=== PATIENT | male | born 1960 | race Caucasian/White ===

== ENCOUNTER 2016-08-11 23:00 | Emergency (ER) | payer MEDICARE, OTHER ==
[2016-08-11 22:45] LABS: BASOPHILS 0.3 %; BASOPHILS ABSOLUTE 0.03 10/3/uL (0.0-0.16); EOSINOPHILS ABSOLUTE 0.29 10/3/uL (0.0-0.53); ER CBC TAT 0 Hrs 13 Mins; HEMATOCRIT 40.7 % (40.0-51.0); HEMOGLOBIN 13.9 g/dL (13.6-17.8); IMMATURE GRANULOCYTES 0.2 %; IMMATURE GRANULOCYTES ABSOLUTE 0.02 10/3/uL (0.0-0.11); LYMPHOCYTES 29.1 %; LYMPHOCYTES ABSOLUTE 2.79 10/3/uL (0.67-4.30); MEAN CORPUS HGB CONC 34.2 g/dL (32.0-36.0); MEAN CORPUSCULAR HEMOGLOB 31.3 pg (26.0-34.0); MEAN CORPUSCULAR VOLUME 91.7 fL (80-100); MEAN PLATELET VOLUME 8.2 fL (9.2-13.0); MONOCYTES 9.7 %; MONOCYTES ABSOLUTE 0.93 10/3/uL (0.21-1.20); NEUTROPHILS 57.7 %; NEUTROPHILS ABSOLUTE 5.52 10/3/uL (2.02-8.40); PLATELET COUNT 152 10/3/uL (150-400); RED CELL COUNT 4.44 10/6/uL (4.7-6.1); WHITE BLOOD CELLS 9.6 10/3/uL (4.5-10.5)
[2016-08-11 22:47] LABS: MANUAL DIFF NO %
[~2016-08-11 23:00] MED LIST: AMITIZA8 MCG PO; CIP2 PO; CLOZARIL25 M1 PO; ESKACR PO; ESKALITH PO; FISH-EPA1000 MG PO; FLEX PO; FORTAMET500 MG PO; GLUCPH PO; LAMICTAL200 MG PO; METFORMIN PO; MORPHINE PO; MSCONT15 PO; MSIMMR15 PO; NEUR800 PO; NEXIUM40 PO; PROSCAR5 PO; SOMATAB PO; TRAVATAN OPH; V5 PO; VITAMIN D1000 UNI1 PO; XALAT OPH; ZANTAC 75 PO; ZANTAC300 MG PO; ZOCOR40 PO; [UNRECOGNIZED DRUG - OTHER] PO
[2016-08-11 23:04] LABS: A/G RATIO 1.1 (0.7-1.9); ALBUMIN 3.6 G/DL (3.5-5.0); BUN (BLOOD UREA NITROGEN) 9 MG/DL (6-23); CHLORIDE, SERUM 102 MMOL/L (96-112); CO2 (CARBON DIOXIDE) 31 MMOL/L (24-34); CREATININE 0.72 MG/DL (0.70-1.30); GFR AFRICAN AMERICAN 121 ML/MIN (>=60); GFR NON AFRICAN AMERICAN 104 ML/MIN (>=60); GLOBULIN 3.4 G/DL (2.5-4.1); GLUCOSE, SERUM 98 MG/DL (60-99); SGOT(AST) 7 U/L (5-40); SGPT(ALT) 15 U/L (5-65); SODIUM, SERUM 140 MMOL/L (135-148); TOTAL BILIRUBIN 0.8 MG/DL (0-1.2)
[2016-08-11 23:10] LABS: ALKALINE PHOSPHATASE 76 U/L (45-117); POTASSIUM, SERUM 3.6 MMOL/L (3.5-5.3)
== END 2016-08-12 02:53 | disposition home or self-care (01) ==
LOC: ER 23:00
PROVIDERS: Emergency Medicine
DX: R10.31 Right lower quadrant pain (principal); R10.32 Left lower quadrant pain; E11.9 Type 2 diabetes mellitus without complications; Z88.8 Allergy status to other drugs, medicaments and biological substances; Z79.899 Other long term (current) drug therapy; Z79.84 Long term (current) use of oral hypoglycemic drugs
CPT/HCPCS: 80053; 81001; 83690; 85025; 99284

== ENCOUNTER 2016-08-20 22:30 | Emergency (ER) | payer MEDICARE, OTHER ==
[2016-08-20 20:49] LABS: BASOPHILS 0.5 %; BASOPHILS ABSOLUTE 0.05 10/3/uL (0.0-0.16); EOSINOPHILS 3.1 %; ER CBC TAT 0 Hrs 09 Mins; HEMATOCRIT 41.3 % (40.0-51.0); HEMOGLOBIN 14.1 g/dL (13.6-17.8); IMMATURE GRANULOCYTES 0.5 %; IMMATURE GRANULOCYTES ABSOLUTE 0.05 10/3/uL (0.0-0.11); LYMPHOCYTES 24.8 %; LYMPHOCYTES ABSOLUTE 2.42 10/3/uL (0.67-4.30); MEAN CORPUS HGB CONC 34.1 g/dL (32.0-36.0); MEAN CORPUSCULAR HEMOGLOB 31.4 pg (26.0-34.0); MEAN PLATELET VOLUME 8.2 fL (9.2-13.0); MONOCYTES 13.8 %; MONOCYTES ABSOLUTE 1.35 10/3/uL (0.21-1.20); NEUTROPHILS 57.3 %; RBC DISTRIBUTION WIDTH 14.1 % (12.0-16.0); RED CELL COUNT 4.49 10/6/uL (4.7-6.1); WHITE BLOOD CELLS 9.8 10/3/uL (4.5-10.5)
[2016-08-20 20:51] LABS: MANUAL DIFF NO %; PLATELET COUNT 203 10/3/uL (150-400)
[2016-08-20 20:59] LABS: PARTIAL THROMBO TIME 30.2 SEC (22.5-37.2)
[2016-08-20 21:01] LABS: BUN (BLOOD UREA NITROGEN) 6 MG/DL (6-23); CALCIUM, SERUM 9.3 MG/DL (8.5-10.4); CHEST PAIN PROFILE TAT 0 Hrs 21 Mins; CHLORIDE, SERUM 103 MMOL/L (96-112); CO2 (CARBON DIOXIDE) 30 MMOL/L (24-34); CREATININE 0.68 MG/DL (0.70-1.30); GFR AFRICAN AMERICAN 124 ML/MIN (>=60); GFR NON AFRICAN AMERICAN 107 ML/MIN (>=60); GLUCOSE, SERUM 104 MG/DL (60-99); POTASSIUM, SERUM 3.7 MMOL/L (3.5-5.3); SODIUM, SERUM 141 MMOL/L (135-148); TROPONIN I <0.02 NG/ML (<0.05)
== END 2016-08-20 22:55 | disposition home or self-care (01) ==
LOC: ER 22:30
PROVIDERS: Emergency Medicine
DX: K21.9 Gastro-esophageal reflux disease without esophagitis (principal); E11.9 Type 2 diabetes mellitus without complications; Z86.73 Personal history of transient ischemic attack (TIA), and cerebral infarction without residual deficits; Z88.8 Allergy status to other drugs, medicaments and biological substances; Z79.84 Long term (current) use of oral hypoglycemic drugs; Z79.899 Other long term (current) drug therapy
CPT/HCPCS: 71020; 80048; 83735; 84484; 85025; 85610; 85730; 93005; 99284; A9270-GY

== ENCOUNTER 2016-09-08 20:13 | Emergency (ER) | payer MEDICARE, OTHER ==
[2016-09-08] MEDS ORDERED: CLOZARIL25 MG PO (21:56)
[2016-09-08] MEDS ORDERED: FLEX PO (21:57)
[2016-09-08] MEDS ORDERED: MSCONT15 PO (21:57)
[2016-09-08] MEDS ORDERED: ZOCOR40 PO (21:57)
[2016-09-08] MEDS ORDERED: NEUR800 PO (21:57)
[2016-09-08] MEDS ORDERED: LAMICTAL200 MG PO (21:57)
[2016-09-08] MEDS ORDERED: NEXIUM40 PO (21:58)
[2016-09-08] MEDS ORDERED: GLUCPH PO (21:58)
[2016-09-08] MEDS ORDERED: ZANTAC300 MG PO (21:58)
[2016-09-08 22:11] LABS: BASOPHILS 0.3 %; BASOPHILS ABSOLUTE 0.03 10/3/uL (0.0-0.16); EOSINOPHILS 5.6 %; EOSINOPHILS ABSOLUTE 0.64 10/3/uL (0.0-0.53); ER CBC TAT 0 Hrs 07 Mins; HEMATOCRIT 37.5 % (40.0-51.0); HEMOGLOBIN 12.8 g/dL (13.6-17.8); IMMATURE GRANULOCYTES 0.3 %; IMMATURE GRANULOCYTES ABSOLUTE 0.03 10/3/uL (0.0-0.11); LYMPHOCYTES 21.1 %; LYMPHOCYTES ABSOLUTE 2.43 10/3/uL (0.67-4.30); MEAN CORPUS HGB CONC 34.1 g/dL (32.0-36.0); MEAN CORPUSCULAR HEMOGLOB 31.8 pg (26.0-34.0); MEAN CORPUSCULAR VOLUME 93.1 fL (80-100); MEAN PLATELET VOLUME 8.2 fL (9.2-13.0); MONOCYTES 8.4 %; MONOCYTES ABSOLUTE 0.96 10/3/uL (0.21-1.20); NEUTROPHILS 64.3 %; PLATELET COUNT 183 10/3/uL (150-400); RBC DISTRIBUTION WIDTH 13.9 % (12.0-16.0); RED CELL COUNT 4.03 10/6/uL (4.7-6.1); WHITE BLOOD CELLS 11.5 10/3/uL (4.5-10.5)
[2016-09-08 22:12] LABS: MANUAL DIFF NO %
[2016-09-08 22:20] LABS: PARTIAL THROMBO TIME 29.4 SEC (22.5-37.2); PROTIME (NOT ORD) 13.4 SEC (12.0-14.5)
[2016-09-08 22:29] LABS: ALKALINE PHOSPHATASE 82 U/L (45-117); CALCIUM, SERUM 9.1 MG/DL (8.5-10.4); CHEST PAIN PROFILE TAT 0 Hrs 25 Mins; CHLORIDE, SERUM 103 MMOL/L (96-112); CO2 (CARBON DIOXIDE) 28 MMOL/L (24-34); CREATININE 0.81 MG/DL (0.70-1.30); GFR AFRICAN AMERICAN 115 ML/MIN (>=60); GFR NON AFRICAN AMERICAN 99 ML/MIN (>=60); GLUCOSE, SERUM 116 MG/DL (60-99); POTASSIUM, SERUM 3.5 MMOL/L (3.5-5.3); SGOT(AST) 7 U/L (5-40); SGPT(ALT) 10 U/L (5-65); SODIUM, SERUM 138 MMOL/L (135-148); TOTAL PROTEIN 6.7 G/DL (6.0-8.5); TROPONIN I <0.02 NG/ML (<0.05)
[2016-09-08 22:32] LABS: BUN (BLOOD UREA NITROGEN) 13 MG/DL (6-23); DIRECT BILIRUBIN < 0.1 MG/DL (0.0-0.4); INDIRECT BILIRUBIN(NOT ORDER) 0.2 MG/DL (0.1-0.9); TOTAL BILIRUBIN 0.3 MG/DL (0-1.2)
[2016-09-09 00:20] LABS: ASCORBIC ACID (UR NOT ORDER) NEG (NEG); BILIRUBIN, URINE NEGATIVE (NEG); ER URINALYSIS TAT 0 Hrs 00 Mins; KETONE, URINE NEGATIVE (NEG); LEUKOCYTE ESTERASE(NOT OR NEG (NEG); NITRITE (URINE) NEG (NEG); WBC (NOT ORDERED) (RFLEX) 1 (0-5)
== END 2016-09-09 02:26 | disposition home or self-care (01) ==
LOC: ER 20:13
PROVIDERS: Nurse Practitioner Acute Care
DX: R53.1 Weakness (principal); Z95.810 Presence of automatic (implantable) cardiac defibrillator; F31.9 Bipolar disorder, unspecified; E11.9 Type 2 diabetes mellitus without complications; Z88.8 Allergy status to other drugs, medicaments and biological substances; Z79.899 Other long term (current) drug therapy; Z79.84 Long term (current) use of oral hypoglycemic drugs
CPT/HCPCS: 70450; 80048; 80076; 81001; 83605; 83690; 83735; 83880; 84484; 85025; 85610; 85730; 87070; 87205; 94640; 99285

== ENCOUNTER 2016-09-12 20:00 | Emergency (ER) | payer MEDICARE, OTHER ==
[~2016-09-12 20:00] MED LIST changes: +CLOZARIL25 MG PO
[2016-09-12 21:04] LABS: BASOPHILS 0.4 %; BASOPHILS ABSOLUTE 0.03 10/3/uL (0.0-0.16); EOSINOPHILS ABSOLUTE 0.51 10/3/uL (0.0-0.53); ER CBC TAT 0 Hrs 11 Mins; HEMATOCRIT 41.5 % (40.0-51.0); HEMOGLOBIN 14.1 g/dL (13.6-17.8); IMMATURE GRANULOCYTES 0.6 %; IMMATURE GRANULOCYTES ABSOLUTE 0.04 10/3/uL (0.0-0.11); LYMPHOCYTES 27.6 %; MANUAL DIFF NO %; MEAN CORPUSCULAR HEMOGLOB 31.1 pg (26.0-34.0); MEAN CORPUSCULAR VOLUME 91.6 fL (80-100); MEAN PLATELET VOLUME 8.4 fL (9.2-13.0); MONOCYTES 12.3 %; MONOCYTES ABSOLUTE 0.89 10/3/uL (0.21-1.20); NEUTROPHILS 52.1 %; NEUTROPHILS ABSOLUTE 3.78 10/3/uL (2.02-8.40); PLATELET COUNT 229 10/3/uL (150-400); RBC DISTRIBUTION WIDTH 13.9 % (12.0-16.0); RED CELL COUNT 4.53 10/6/uL (4.7-6.1); WHITE BLOOD CELLS 7.3 10/3/uL (4.5-10.5)
[2016-09-12 21:10] LABS: PARTIAL THROMBO TIME 31.3 SEC (22.5-37.2); PROTIME (NOT ORD) 12.9 SEC (12.0-14.5)
[2016-09-12 21:20] LABS: BUN (BLOOD UREA NITROGEN) 8 MG/DL (6-23); CALCIUM, SERUM 9.7 MG/DL (8.5-10.4); CHEST PAIN PROFILE TAT 0 Hrs 27 Mins; CHLORIDE, SERUM 101 MMOL/L (96-112); CO2 (CARBON DIOXIDE) 33 MMOL/L (24-34); CREATININE 0.81 MG/DL (0.70-1.30); GFR AFRICAN AMERICAN 115 ML/MIN (>=60); GFR NON AFRICAN AMERICAN 99 ML/MIN (>=60); GLUCOSE, SERUM 131 MG/DL (60-99); POTASSIUM, SERUM 4.2 MMOL/L (3.5-5.3); SODIUM, SERUM 138 MMOL/L (135-148); TROPONIN I <0.02 NG/ML (<0.05)
[2016-09-13 00:30] LABS: ALBUMIN 3.4 G/DL (3.5-5.0); DIRECT BILIRUBIN 0.1 MG/DL (0.0-0.4); INDIRECT BILIRUBIN(NOT ORDER) 0.3 MG/DL (0.1-0.9); SGOT(AST) 14 U/L (5-40); SGPT(ALT) 12 U/L (5-65); TOTAL BILIRUBIN 0.4 MG/DL (0-1.2); TOTAL PROTEIN 7.7 G/DL (6.0-8.5)
[2016-09-13 00:33] LABS: ALKALINE PHOSPHATASE 96 U/L (45-117)
== END 2016-09-13 04:46 | disposition home or self-care (01) ==
LOC: ER 20:00
PROVIDERS: Emergency Medicine
DX: R07.9 Chest pain, unspecified (principal); F31.9 Bipolar disorder, unspecified; E11.9 Type 2 diabetes mellitus without complications; Z86.73 Personal history of transient ischemic attack (TIA), and cerebral infarction without residual deficits; Z88.8 Allergy status to other drugs, medicaments and biological substances; Z79.899 Other long term (current) drug therapy; Z79.84 Long term (current) use of oral hypoglycemic drugs
CPT/HCPCS: 71010; 71275; 74176; 80048; 80076; 83690; 83735; 84484; 85025; 85610; 85730; 87040; 87150; 93005; 96374; 99285; A9270-GY; Q9967

== ENCOUNTER 2016-09-15 03:32 | Emergency (ER) | payer MEDICARE, OTHER ==
[2016-09-15 02:58] LABS: BASOPHILS 0.6 %; BASOPHILS ABSOLUTE 0.05 10/3/uL (0.0-0.16); EOSINOPHILS 6.1 %; EOSINOPHILS ABSOLUTE 0.53 10/3/uL (0.0-0.53); HEMATOCRIT 37.8 % (40.0-51.0); HEMOGLOBIN 13.1 g/dL (13.6-17.8); IMMATURE GRANULOCYTES 0.7 %; IMMATURE GRANULOCYTES ABSOLUTE 0.06 10/3/uL (0.0-0.11); LYMPHOCYTES 30.3 %; LYMPHOCYTES ABSOLUTE 2.62 10/3/uL (0.67-4.30); MEAN CORPUS HGB CONC 34.7 g/dL (32.0-36.0); MEAN CORPUSCULAR HEMOGLOB 31.6 pg (26.0-34.0); MEAN CORPUSCULAR VOLUME 91.1 fL (80-100); MONOCYTES ABSOLUTE 1.04 10/3/uL (0.21-1.20); NEUTROPHILS 50.3 %; NEUTROPHILS ABSOLUTE 4.34 10/3/uL (2.02-8.40); PLATELET COUNT 212 10/3/uL (150-400); RBC DISTRIBUTION WIDTH 13.8 % (12.0-16.0); RED CELL COUNT 4.15 10/6/uL (4.7-6.1); WHITE BLOOD CELLS 8.6 10/3/uL (4.5-10.5)
[2016-09-15 02:59] LABS: MANUAL DIFF NO %
[2016-09-15 03:06] LABS: INTERNATIONAL NORMAL RATI 1.2 UNITS (-); PROTIME (NOT ORD) 14.8 SEC (12.0-14.5)
[2016-09-15 03:17] LABS: ALBUMIN 3.2 G/DL (3.5-5.0); ALKALINE PHOSPHATASE 73 U/L (45-117); CALCIUM, SERUM 9.2 MG/DL (8.5-10.4); CHLORIDE, SERUM 105 MMOL/L (96-112); CO2 (CARBON DIOXIDE) 29 MMOL/L (24-34); CREATININE 0.65 MG/DL (0.70-1.30); GFR AFRICAN AMERICAN 126 ML/MIN (>=60); GFR NON AFRICAN AMERICAN 109 ML/MIN (>=60); GLUCOSE, SERUM 92 MG/DL (60-99); POTASSIUM, SERUM 3.6 MMOL/L (3.5-5.3); SGPT(ALT) 10 U/L (5-65); SODIUM, SERUM 141 MMOL/L (135-148); TOTAL PROTEIN 6.6 G/DL (6.0-8.5)
[2016-09-15 03:24] LABS: CHEST PAIN PROFILE TAT 0 Hrs 30 Mins; DIRECT BILIRUBIN 0.1 MG/DL (0.0-0.4); TROPONIN I <0.02 NG/ML (<0.05)
[2016-09-15 03:32] LABS: BUN (BLOOD UREA NITROGEN) 10 MG/DL (6-23); INDIRECT BILIRUBIN(NOT ORDER) 0.2 MG/DL (0.1-0.9); SGOT(AST) 5 U/L (5-40); TOTAL BILIRUBIN 0.3 MG/DL (0-1.2)
== END 2016-09-15 04:59 | disposition home or self-care (01) ==
LOC: ER 03:32
PROVIDERS: Nurse Practitioner Acute Care
DX: R07.9 Chest pain, unspecified (principal); Z95.810 Presence of automatic (implantable) cardiac defibrillator; Z86.73 Personal history of transient ischemic attack (TIA), and cerebral infarction without residual deficits; E11.9 Type 2 diabetes mellitus without complications; F31.9 Bipolar disorder, unspecified; K21.9 Gastro-esophageal reflux disease without esophagitis; Z88.8 Allergy status to other drugs, medicaments and biological substances; Z79.899 Other long term (current) drug therapy; Z79.84 Long term (current) use of oral hypoglycemic drugs
CPT/HCPCS: 71010; 80048; 80076; 83690; 83735; 84484; 85025; 85610; 85730; 93005; 94640; 99285

== ENCOUNTER 2016-09-18 02:25 | Emergency (ER) | payer MEDICARE, OTHER ==
[2016-09-18 03:13] LABS: BASOPHILS 0.4 %; BASOPHILS ABSOLUTE 0.04 10/3/uL (0.0-0.16); EOSINOPHILS 3.6 %; EOSINOPHILS ABSOLUTE 0.39 10/3/uL (0.0-0.53); HEMATOCRIT 39.4 % (40.0-51.0); HEMOGLOBIN 13.2 g/dL (13.6-17.8); IMMATURE GRANULOCYTES 0.7 %; IMMATURE GRANULOCYTES ABSOLUTE 0.08 10/3/uL (0.0-0.11); LYMPHOCYTES 27.7 %; LYMPHOCYTES ABSOLUTE 3.03 10/3/uL (0.67-4.30); MEAN CORPUS HGB CONC 33.5 g/dL (32.0-36.0); MEAN CORPUSCULAR HEMOGLOB 31.1 pg (26.0-34.0); MEAN CORPUSCULAR VOLUME 92.9 fL (80-100); MEAN PLATELET VOLUME 8.2 fL (9.2-13.0); MONOCYTES 12.1 %; MONOCYTES ABSOLUTE 1.32 10/3/uL (0.21-1.20); NEUTROPHILS 55.5 %; NEUTROPHILS ABSOLUTE 6.06 10/3/uL (2.02-8.40); PLATELET COUNT 197 10/3/uL (150-400); RBC DISTRIBUTION WIDTH 13.8 % (12.0-16.0); RED CELL COUNT 4.24 10/6/uL (4.7-6.1); WHITE BLOOD CELLS 10.9 10/3/uL (4.5-10.5)
[2016-09-18 03:14] LABS: MANUAL DIFF NO %
[2016-09-18 03:20] LABS: INTERNATIONAL NORMAL RATI 1.1 UNITS (-); PARTIAL THROMBO TIME 28.6 SEC (22.5-37.2); PROTIME (NOT ORD) 14.2 SEC (12.0-14.5)
[2016-09-18 03:30] LABS: CALCIUM, SERUM 9.1 MG/DL (8.5-10.4); CHEST PAIN PROFILE TAT 0 Hrs 21 Mins; CHLORIDE, SERUM 106 MMOL/L (96-112); CO2 (CARBON DIOXIDE) 32 MMOL/L (24-34); CREATININE 0.91 MG/DL (0.70-1.30); GFR AFRICAN AMERICAN 109 ML/MIN (>=60); GFR NON AFRICAN AMERICAN 94 ML/MIN (>=60); GLUCOSE, SERUM 109 MG/DL (60-99); POTASSIUM, SERUM 3.5 MMOL/L (3.5-5.3); SODIUM, SERUM 145 MMOL/L (135-148); TROPONIN I <0.02 NG/ML (<0.05)
[2016-09-18 03:32] LABS: BUN (BLOOD UREA NITROGEN) 19 MG/DL (6-23)
== END 2016-09-18 06:17 | disposition home or self-care (01) ==
LOC: ER 02:25
PROVIDERS: Nurse Practitioner
DX: R07.89 Other chest pain (principal); I10 Essential (primary) hypertension; K21.9 Gastro-esophageal reflux disease without esophagitis; E11.9 Type 2 diabetes mellitus without complications; F20.9 Schizophrenia, unspecified; F31.9 Bipolar disorder, unspecified; Z86.73 Personal history of transient ischemic attack (TIA), and cerebral infarction without residual deficits; Z95.0 Presence of cardiac pacemaker; Z98.890 Other specified postprocedural states; Z88.8 Allergy status to other drugs, medicaments and biological substances; Z79.899 Other long term (current) drug therapy
CPT/HCPCS: 71010; 80048; 81001; 83735; 84484; 85025; 85610; 85730; 93005; 99285